=== PATIENT | male | born 1975 | race Caucasian/White ===

== ENCOUNTER 2022-12-03 08:30 | Outpatient (CLI) | payer OTHER, SELFPAY | END 2022-12-03 08:31 | disposition home or self-care (01) | PROVIDERS: Visit Provider Family Medicine | DX: Z00.00 Encounter for general adult medical examination without abnormal findings (principal); R03.0 Elevated blood-pressure reading, without diagnosis of hypertension; Z13.6 Encounter for screening for cardiovascular disorders; Z13.1 Encounter for screening for diabetes mellitus | CPT/HCPCS: 80053; 80061 ==

== ENCOUNTER 2024-05-24 19:07 | Outpatient (CLI) | payer BC, SELFPAY ==
--- OUTSIDE RECORDS SUMMARY | 2024-05-24 19:10 | XMS_ITS | Clinical Summary ---
Author Organization [facility] Address [place], [place] [address] Care Team Providers Care [facility] Name Role Phone Unknown, Doctor Primary Care Provider Unavailabl e Allergies Active Allergy Reactions Criticality Noted Date Comments Penicillins 11/01/2009 Medications Medication Sig Dispensed Refills Start Date End Date Status clobetasol cream 0.05% (TEMOVATE) 0.05 % cream Apply topically to affected area(s) 2 times daily. 30 g 0 04/07/2013 Active diazepam (VALIUM) 10 mg tabletIndications:En counter for vasectomy counseling Take one tablet 1/2 hour before procedure. May repeat one as needed. 2 tablet 0 04/20/2013 Active Resolved Problems Problem Noted Date Diagnosed Date Resolved Date Poison shane 04/07/2013 04/20/2013 Immunizations Name Administration Dates Next Due Tdap 11/01/2009 Family History Medical History Relation Name Comments Cancer Father d 65 yo leukemi a Cancer Mother d 63 yo ovarian CA Relation Name Status Comments Father Mother Social History Tobacco Use Types Packs/Day Years Used Date Smoking Tobacco: Never Smokeless Tobacco: Never Tobacco Cessation:Counseling Given: Yes Alcohol Use Standard Drinks/Week Comments Yes 3.3 (1 standard drink = 0.6 oz p ure alcohol) Sex and Gender Information Value Date Recorded Sex Assigned at Not on file Gender Identity Not on file Sexual Orientation Not on file Obstetrics History Last Filed Vital Signs Vital Sign Reading Time Taken Comments Blood Pressure 117/76 04/20/2013 10:56 AM CDT Pulse 54 04/20/2013 10:56 AM CDT Temperature 36.8 ??C (98.2 ??F) 04/20/2013 10:56 AM C DT Respiratory Rate - - Oxygen Saturation 100% 04/20/2013 10:56 AM CDT Inhaled Oxygen Concentration - - Weight 89.9 kg (198 lb 3.2 oz) 04/20/2013 10:56 AM CDT Height - - Body Mass Index - - Plan of Treatment Health Maintenance Due Date Last Done Comments Depression screening for age 12+ 1989 HIV for age 15-65 02/09/1992 BMI (ht and wt on same day) for age 18+ 1995 Hepatitis C screening for ag e 18-79 1995 Tetanus booster 11/02/2019 11/01/2009 Colonoscopy through age 75 2022 Lipids for age 45-75 2022 COVID-19 vaccine series (2023- season) 2024 Influenza for age 9-49 04/03/2024 Tdap Completed 11/01/2009 Pneumococcal series for age 6-64 Aged Out No longer eligible based on patient's age to complete this topic Care Teams [facility] [employer] Relationship Specialty Start Date End Date Unknown, Doctor . PCP - General 03/09/06
--- NOTE | 2024-06-07 08:50 | W.PM.SLEEP ---
Sleep Study Details Details Interpreting Provider: Erik Date of Sleep Study: 05/24/24 Sleep Study Details: STUDY TYPE:? Home unattended ? BMI:? 32.4 ORDERING PROVIDER:? Darrick INDICATION:? Concern about sleep apnea ? SLEEP SUMMARY:? 440 minutes monitored RESPIRATORY SUMMARY:? AHI 60.5, left lateral 58.5, supine 94, right lateral 8, Low oxygen 68 34.9% of study oxygen less than 90% PERIODIC LIMB MOVEMENTS OF SLEEP:? Not recorded CARDIAC:? Range 59-105, mean 81.2 beats per minute IMPRESSION:? Severe obstructive sleep apnea. The patient appeared to do better in the right lateral position. RECOMMENDATION: AutoSet CPAP versus in-lab titration.
== END 2024-05-24 19:08 | disposition home or self-care (01) ==
LOC: SLEEP 19:08
PROVIDERS: PCP Family Medicine; Visit Provider Family Medicine
DX: G47.33 Obstructive sleep apnea (adult) (pediatric) (principal)
CPT/HCPCS: 95806